=== PATIENT | male | born 1970 | race Caucasian/White ===

== ENCOUNTER 2020-02-01 08:47 | Day surgery (SDC) | payer OTHER ==
[~2020-02-01] VITALS: Ht 172.7 cm; Wt 123.6 kg
[~2020-02-01 08:47] MED LIST: SODIUM CHLORIDE 0.9% 1,000 ML IV ONE
[2020-02-01] MEDS ORDERED: MIDAZOLAM HCL 2 MG/2 ML VIAL IVP ONE (08:48)
[2020-02-01] MEDS ORDERED: SODIUM CHLORIDE 0.9% 1,000 ML ONE (09:04)
[2020-02-01 09:18] LABS: COVID AG,FIA SOURCE NASOPHARYNGEAL
[2020-02-01 09:47] LABS: GLUCOMETER DEV NAME(LOC) SDS.; GLUCOSE,POINT OF CARE 131 MG/DL (70-110)
[2020-02-01] MEDS ORDERED: PROPOFOL 1% 20 ML VIAL IVP ONE (12:00)
[2020-02-01] MEDS ORDERED: LIDOCAINE/PF 2% 5 ML VIAL INJ ONE (12:00)
[2020-02-01] MEDS ORDERED: OXYGEN THERAPY IH SCH (20:00)
== END 2020-02-01 12:10 | disposition home or self-care (01) ==
LOC: SURGERY 08:47
PROVIDERS: ATTEND Specialist
DX: Z12.11 Encounter for screening for malignant neoplasm of colon (principal); D12.3 Benign neoplasm of transverse colon; K29.50 Unspecified chronic gastritis without bleeding; K21.9 Gastro-esophageal reflux disease without esophagitis; E11.40 Type 2 diabetes mellitus with diabetic neuropathy, unspecified; G40.909 Epilepsy, unspecified, not intractable, without status epilepticus; Z79.899 Other long term (current) drug therapy; Z98.890 Other specified postprocedural states; Z89.029 Acquired absence of unspecified finger(s); B96.89 Other specified bacterial agents as the cause of diseases classified elsewhere; Z20.828 Contact with and (suspected) exposure to other viral communicable diseases
CPT/HCPCS: 43239; 45385; 82962; 87426; 88305; 88312; 88313; C1769; C9803; J2250; J2704; J3490; J7030